=== PATIENT | female | born 1985 | race Two or more races ===

== ENCOUNTER 2017-09-11 22:42 | Emergency (ER) | payer OTHER ==
[~2017-09-11] VITALS: Ht 152.4 cm; Wt 58.1 kg
[2017-09-12] MEDS ORDERED: PROTECT PLUS S1 EACH PO (04:42)
== END 2017-09-12 04:50 | disposition home or self-care (01) ==
LOC: ER 22:42
DX: R42 Dizziness and giddiness (principal)

== ENCOUNTER 2020-05-13 14:27 | Emergency (ER) | payer OTHER ==
[~2020-05-13] VITALS: Ht 152.4 cm; Wt 59.4 kg
[~2020-05-13 14:27] MED LIST: PROTECT PLUS S1 EACH PO
== END 2020-05-13 19:00 | disposition home or self-care (01) ==
LOC: ER 14:27
DX: R07.89 Other chest pain (principal); R06.02 Shortness of breath